=== PATIENT | female | born 2000 | race Caucasian/White ===

== ENCOUNTER 2021-03-25 16:07 | Emergency (ER) | payer OTHER, SELFPAY ==
--- NOTE | ~2021-03-25 | XR_ITS ---
EXAMINATION: XR abdomen/kub 1V DATE: 03/25/2021 19:14 INDICATION: Constipation TECHNIQUE: A supine view of the abdomen on 2 radiographs was obtained. COMPARISON: None. FINDINGS: Large amount of stool at the proximal colon as well as at the rectum where there is a ball of stool m easuring 10 cm in diameter. No dilated loops of gas-filled small bowel to suggest obstruction. IMPRESSION: 1. 10 cm ball of stool at the rectum consistent with constipation and possible fecal impaction. Reviewed, dictated and finalized at location A. [employer]
[2021-03-25 16:40] VITALS: BP 122/87; PULSE 99; RESP 18; TEMP 36.8; O2SAT 100
--- NOTE | 2021-03-25 16:57 | PC.NURSE ---
Pt states her lower abd. hurts and doesn't know last BM, states that flatulence is present here and there for about a few days
--- NOTE | 2021-03-25 17:55 | ED.GENADULT ---
HPI - General Adult General Chief complaint: Unspecified Stated complaint: CONSTIPATION Time Seen by Provider: 03/25/21 16:57 Source: patient Mode of arrival: ambulatory Limitations: other (poor historian) History of Present Illness HPI narrative: This is a 20 year old female who presents for evaluation of constipation. She is having is low abdominal pain when she has a bowel movement. She has pain in lower abdomen and both thighs. She reports constipation over the past couple of days. She reports having a bowel movement today but she was unable finish due to pain. Her mother states patient has been dealing with constipation and she will hold it in to prevent from having a bowel movement. She was given Ex lax today. Patient denies having abdominal pain now, and she also denies nausea, vomiting, fever or chills. Her last menstrual cycle was last month but she was unable to given exact date. Related Data Allergies Allergy/AdvReac Type Severity Reaction Status Date / Time No Known Allergies Allergy Verified 03/25/21 21:04 Review of Systems Review of Systems: All systems reviewed & are unremarkable except as noted in HPI and below PMFSH Past Medical History Medical History (Updated 03/25/21 @ 21:04 by Ingrid Hastings MD) Patient denies medical problems Surgical History Surgical History (Updated 03/25/21 @ 18:03 by Ingrid Hastings MD) No pertinent past surgical history Social History Social History (Updated 03/25/21 @ 18:03 by Ingrid Hastings MD) Smoking status: Never smoker Exam Narrative: GENERAL: Well-appearing, well-nourished, and in no acute distress. HEAD: Normocephalic, atraumatic EYES: PERRLA and EOMI, conjunctiva clear without discharge NECK: Supple, without lymphadenopathy or mass RESPIRATORY: No respiratory distress, Airway patent, Respirations non-labored, Clear to auscultation without rales, rhonchi or wheeze HEART: Regular rate and rhythm. No murmur heard. Normal peripheral pulses. ABDOMEN: Soft, nontender, nondistended, normal active bowel sounds. No masses. No rebound or guarding, No organomegaly. unable to tolerate rectal but stool present, soft, no bleeding EXTREMITIES: No edema, normal strength with full range of motion. SKIN: Warm, dry, normal color without rash NEURO: Alert and oriented x3. CN 2-12 grossly intact. No focal deficits. PSYCH: Normal mood and affect. Course Reevaluation(s) Reevaluation #1: Patient was given soap suds enema and she had large bowel movement. She reports she feels much better. She is stable for discharge. I discussed bowel regimen. Date: 03/25/21 Time: 21:01 Vital Signs Vital signs: Vital Signs Temperature 98.2 F 03/25/21 16:40 Pulse Rate 99 03/25/21 16:40 Respiratory Rate 18 03/25/21 16:40 Blood Pressure 122/87 03/25/21 16:40 Pulse Oximetry 100 03/25/21 16:40 Temperature 98.2 F 03/25/21 16:40 Pulse Rate 99 03/25/21 16:40 Respiratory Rate 18 03/25/21 16:40 Blood Pressure 122/87 03/25/21 16:40 Pulse Oximetry 100 03/25/21 16:40 Medical Decision Making Vital Signs Vital Signs: Vital Signs Temperature 98.2 F 03/25/21 16:40 Pulse Rate 99 03/25/21 16:40 Respiratory Rate 18 03/25/21 16:40 Blood Pressure 122/87 03/25/21 16:40 Pulse Oximetry 100 03/25/21 16:40 Temperature 98.2 F 03/25/21 16:40 Pulse Rate 99 03/25/21 16:40 Respiratory Rate 18 03/25/21 16:40 Blood Pressure 122/87 03/25/21 16:40 Pulse Oximetry 100 03/25/21 16:40 Lab Data Lab results reviewed: Yes I reviewed the patient's lab results. Labs: Lab Results 03/25/21 Range/Units 19:45 Urine Color Yellow (Yellow) Urine Appearance Cloudy H (Clear) Urine pH 5.0 (5.0-9.0) Ur Specific [place] 1.030 (1.001-1.035) Urine Protein 1+ H (Negative) mg/dL Urine Glucose (UA) Negative (Negative) mg/dL Urine Ketones 1+ H (Negative) mg/dL Ur Blood (Man) Negative (Negative)
--- NOTE | 2021-03-25 18:20 | PC.NURSE ---
Educated pt on needing urine sample before xray, parent was not cooperative, parent asked to speak with doctor bc she feels her daughter is not and is not needed, Dr. Hastings encouraged pt to attempt to urinate
--- NOTE | 2021-03-25 18:33 | PC.NURSE ---
Pt is still in the restroom attempting to urinate,
--- NOTE | 2021-03-25 18:50 | PC.NURSE ---
Patient continues to state that she can not pee,pt states she is having a lot of pain in lower quadrants, educated patient and parent on straight cath,educated both refused, MD Hastings aware
[2021-03-25 19:56] LABS: Add Urine Microscopic? YES; Appearance Urine Cloudy (Clear); Bilirubin Urine Negative (Negative); Color Urine Yellow (Yellow); Glucose Urine UA Negative (Negative); Ketones Urine 1+ mg/dL (Negative); Leukocyte Esterase Ur 1+ LEU/UL (Negative); Mucus Urine Heavy /lpf; Nitrate Urine Negative (Negative); Protein Urine 1+ mg/dL (Negative); Squamous Epithelial Cell Urine Many /hpf (Few); Urobilinogen Urine Negative mg/dL (<2.0)
[2021-03-25 19:57] LABS: Blood Urine Negative (Negative)
[2021-03-25 21:15] VITALS: BP 136/88; PULSE 101; RESP 18; O2SAT 97
== END 2021-03-25 21:15 | disposition home or self-care (01) ==
PROVIDERS: Emergency Provider General Practice
DX: K59.00 Constipation, unspecified (principal)
CPT/HCPCS: 74018; 81001; 81025; 87086; 87088; 99283